=== PATIENT | male | born 1995 | race Caucasian/White ===

== ENCOUNTER 2022-11-10 11:25 | Emergency (ER) | payer BC, MEDICAID ==
[2022-11-10] MEDS ORDERED: Ibuprofen 400 MG Tab PO ONE (11:39)
== END 2022-11-10 12:25 | disposition home or self-care (01) ==
LOC: DL.ED 11:25
DX: S60.222A Contusion of left hand, initial encounter (principal); Z72.0 Tobacco use; Z86.16 Personal history of COVID-19; W22.09XA Striking against other stationary object, initial encounter
CPT/HCPCS: 73130; 99282; 99283; A9270

== ENCOUNTER 2023-12-27 16:10 | Emergency (ER) | payer BC, OTHER | END 2023-12-27 18:55 | disposition home or self-care (01) | LOC: DL.ED 16:10 | DX: S01.01XA Laceration without foreign body of scalp, initial encounter (principal); Z86.16 Personal history of COVID-19; X58.XXXA Exposure to other specified factors, initial encounter | CPT/HCPCS: 12001; 99282; 99283 ==

== ENCOUNTER 2024-09-28 17:51 | Emergency (ER) | payer BC, OTHER | END 2024-09-28 18:04 | disposition home or self-care (01) | LOC: DL.ED 17:51 | DX: T75.4XXA Electrocution, initial encounter (principal); Z86.16 Personal history of COVID-19; W86.8XXA Exposure to other electric current, initial encounter | CPT/HCPCS: 99282; 99283 ==

== ENCOUNTER 2024-11-07 15:44 | Emergency (ER) | payer OTHER, BC ==
[2024-11-07] MEDS: Lidocaine 1% 5 ML VIAL INJECT ONE (16:33)
[2024-11-07] MEDS: Bacitracin Oint 1 GM U/D Packet TOP ONE (16:33)
== END 2024-11-07 17:04 | disposition home or self-care (01) ==
LOC: DL.ED 15:44
DX: S61.022A Laceration with foreign body of left thumb without damage to nail, initial encounter (principal); Z86.16 Personal history of COVID-19; W26.8XXA Contact with other sharp object(s), not elsewhere classified, initial encounter
CPT/HCPCS: 12001; 99282; A9270; J2003